=== PATIENT | female | born 1995 | race Caucasian/White ===

== ENCOUNTER → 2024-04-03 11:07 | Outpatient (CLI) | payer OTHER, SELFPAY ==
--- NOTE | 2024-04-03 11:18 | DI.RAD.S_ITS ---
PROCEDURE: XR ELBOW LT MIN 3V INDICATIONS: LT ELBOW FRACTURE TECHNIQUE: 3 views of the elbow were acquired. COMPARISON: None. FINDINGS: Bones: Corticated fragment adjacent to tip of coronoid process suggestive of healed fracture. No acute fractures or dislocations. No suspicious bony lesions. Soft tissues: Possible contraceptive device is noted in medial upper arm subcutaneous soft tissue. No elbow joint effusion. No suspicious soft tissue calcifications. IMPRESSION: Likely old injury involving tip of coronary process with well corticated fragment. No acute elbow fracture or dislocation. No significant joint effusion is seen. Dictated by: Art Teran M.D. on 04/03/2024 at 14:47 Approved by: Art Teran M.D. on 04/03/2024 at 14:49
== END ==
PROVIDERS: Referring Provider Chiropractor; Visit Provider Chiropractor
DX: S42.402A Unspecified fracture of lower end of left humerus, initial encounter for closed fracture (principal); X58.XXXA Exposure to other specified factors, initial encounter
CPT/HCPCS: 73080